=== PATIENT | female | born 1955 | race Hispanic/Latino ===

== ENCOUNTER 2019-07-15 10:48 | Emergency (ER) | payer BC, OTHER ==
--- OUTSIDE RECORDS SUMMARY | 2019-07-15 10:56 | XMS REPORT ---
:1955 Author Organization [employer] Care Team Providers Name Role Phone Donald Salvador Provider Role Unavailable Allergies, Adverse Reactions, Alerts Substance Reaction Event Type N.K.D.A. Info Not Available Non Drug Allergy Problems Problem Type Condition Code Onset Dates Condition Status Problem Pain, joint, shoulder, left M25.512 Active Problem Radiculitis of left cervical region M54.12 Active Problem Impingement syndrome of left M75.42 Active shoulder Assessment Impingement syndrome of left M75.42 Active shoulder Assessment Radiculitis of left cervical region M54.12 Active Assessment Pain, joint, shoulder, left M25.512 Active Medications No Known Medications Results No Known Results Summary Purpose [employer] Submission
[2019-07-15] MEDS ORDERED: METHOCARBAMOL 500 MG TAB ONE (12:37)
[2019-07-15] MEDS ORDERED: KETOROLAC 30 MG/ML INJ ONE (12:37)
[2019-07-15] MEDS ORDERED: DIAZEPAM 10 MG/2 ML INJ SYRINGE ONE (12:37)
[2019-07-15] MEDS ORDERED: METHYLPREDNISOLONE 125 MG INJ ONE (12:37)
--- NOTE | 2019-07-15 13:52 | RAD REPORT ---
EXAM DESCRIPTION: RAD - C Spine W Obliques - 07/15/2019 1:45 pm CLINICAL HISTORY: Neck pain, limited range of motion COMPARISON: September 2016 TECHNIQUE: AP, lateral, odontoid and oblique views of the cervical spine were obtained. FINDINGS: Cervical bodies are normal in height. No fracture or acute cervical spine finding seen. C5 -C7 fusion changes are present. Hardware is well positioned. Fusion appears well healed. There is reversal of the usual cervical lordosis with the apex at the C4-5 level. There is slight ant erior subluxation of C4 on C5. These are stable findings. C7-T1 disc space is narrowed with us spurri ng and sclerotic changes to the endplates. This is also seen as a stable finding. No fracture or other suspicious bony finding. Oblique view show no significant bony foraminal encroa chment. No significant facet degenerative change. There is no prevertebral soft tissue thickening or other significant soft tissue finding. IMPRESSION: Well-healed C5-C7 fusion changes are present with no hardware abnormality. Slight anterior subluxation of C4 on C5 is stable finding. No fracture or acute finding seen. No significant changes from the 2016 study.
--- NOTE | 2019-07-15 14:11 | ER ---
Nurse's Notes [facility] Name: Dana Garner Age: 64 yrs Sex: Female : 1955 Arrival Date: 07/15/2019 Time: 10:51 Bed 25 Private MD: Diagnosis: Torticollis Presentation: 07/15 11:06 Presenting complaint: Patient states: "My neck is still and it hurts and it goes up aj1 into my head and shoulders" Reports that she has been having this pain since yesterday. Denies any injury to the area. Denies fever. Transition of care: patient was not received from another setting of care. Onset of symptoms was July 13, 2019. Risk Assessment: Do you want to hurt yourself or someone else? Patient reports no desire to harm self or others. Initial Sepsis Screen: Does the patient meet any 2 criteria? No. Patient's initial sepsis screen is negative. Does the patient have a suspected source of infection? No. Patient's initial sepsis screen is negative. Care prior to arrival: None. 11:06 Method Of Arrival: Ambulatory aj1 11:06 Acuity: QUIRINO 4 aj1 Triage Assessment: 11:08 General: Appears in no apparent distress. uncomfortable, Behavior is calm, cooperative, aj1 appropriate for age. Pain: Complains of pain in neck Pain radiates to scalp, left trapezius and right trapezius Pain currently is 9 out of 10 on a pain scale. Quality of pain is described as soreness, tightness Pain began 2-3 days ago. Is intermittent. Neuro: Level of Consciousness is awake, alert, obeys commands, Oriented to person, place, time, situation, Gait is steady, Speech is normal, Facial symmetry appears normal. Cardiovascular: Patient's skin is warm and dry. Respiratory: Airway is patent Respiratory effort is even, unlabored, Respiratory pattern is regular, symmetrical. Historical: - Allergies: 11:08 No Known Allergies; aj1 - Home Meds: 11:08 None [Active]; aj1 - PMHx: 11:08 None; aj1 - PSHx: 11:08 surgery for a pinched nerve; aj1 - Immunization history:: Flu vaccine is not up to date. - Social history:: Smoking status: Patient/guardian denies using tobacco. - Ebola Screening: : Patient denies travel to an Ebola-affected area in the 21 days before illness onset. Screenin:48 Abuse screen: Denies threats or abuse. Denies injuries from another. Abuse screen: mg2 Denies threats or abuse. Nutritional screening: No deficits noted. Tuberculosis screening: No symptoms or risk factors identified. Fall Risk IV access (20 points). Assessment: 12:46 General: Appears in no apparent distress. comfortable, Behavior is calm, cooperative. mg2 Pain: Complains of pain in neck Pain does not radiate. Pain currently is 5 out of 10 on a pain scale. Quality of pain is described as aching, Pain began gradually, Is intermittent, Alleviated by medications. Neuro: Level of Consciousness is awake, alert, obeys commands, Oriented to person, place, time, situation. Cardiovascular: Capillary refill < 3 seconds Patient's skin is warm and dry. Respiratory: Airway is patent Respiratory effort is even, unlabored, Respiratory pattern is regular, symmetrical. GI: No signs and/or symptoms were reported involving the gastrointestinal system. : No signs and/or symptoms were reported regarding the genitourinary system. EENT: No signs and/or symptoms were reported regarding the EENT system. Derm: Skin is intact, is healthy with good turgor, Skin is pink, warm \\T\\ dry. normal. Musculoskeletal: Circulation, motion, and sensation intact. Capillary refill < 3 seconds, Reports pain in neck. 13:44 Reassessment: patient sent to xray via stretcher. mg2 14:44 Reassessment: Patient denies pain at this time. Patient states feeling better. Patient mg2 states symptoms have improved. Vital Signs: 11:08 BP 145 / 77; Pulse 79; Resp 18; Temp 98.5; Pulse Ox 99% on R/A; Weight 81.65 kg (R); aj1 Height 5 ft. 3 in. (160.02 cm) (R); Pain 9/10; 12:30 BP 135 / 70; Pulse 80; Resp 18; Temp 98(O); Pulse Ox 100% ; mg2 14:30 BP 133 / 70; Pulse 80; Resp 18; Pulse Ox 100% on R/A; mg2 11:08 Body Mass Index 31.89 (81.65 kg, 160.02 cm) aj1 ED Course: 10:51 Patient arrived in ED. as 11:08 Triage completed. aj1 11:08 Arm band placed on Patient placed in waiting room, Patient notified of wait time. aj1 12:18 Pascual Meza RN is Primary Nurse. mg2 12:18 Kashmir Zhou MD is Attending Physician. kdr 12:48 Patient has correct armband on for positive identification. mg2 12:48 No provider procedures requiring assistance completed. Inserted saline lock: 22 gauge mg2 in left antecubital area, using aseptic technique. 13:39 X-ray completed. Patient tolerated procedure well. Patient moved back from radiology. ml 14:44 IV discontinued, intact, bleeding controlled, No redness/swelling at site. Pressure mg2 dressing applied. Administered Medications: 12:46 Drug: TORadol - Ketorolac 15 mg Route: IVP; Site: left antecubital; mg2 14:25 Follow up: Response: No adverse reaction; Marked relief of symptoms mg2 12:46 Drug: SOLU-Medrol 125 mg Route: IVP; Site: left antecubital; mg2 14:24 Follow up: Response: No adverse reaction; Marked relief of symptoms mg2 12:46 Drug: Valium 5 mg Route: IVP; Site: left antecubital; mg2 14:24 Follow up: Response: No adverse reaction; Marked relief of symptoms mg2 12:46 Drug: Robaxin 750 mg Route: PO; mg2 14:24 Follow up: Response: No adverse reaction; Marked relief of symptoms mg2 Outcome: 14:09 Discharge ordered by . kdr 14:45 Discharged to home ambulatory, with family. mg2 14:45 Condition: stable 14:45 Discharge instructions given to patient, family, Instructed on discharge instructions, follow up and referral plans. medication usage, Demonstrated understanding of instructions, follow-up care, medications, Prescriptions given X 1. 14:45 Patient left the ED. mg2 Signatures: Siomara Martinez RN RN aj1 Kashmir Zhou MD MD kdr Shanon Redmond Melissa Pascual Meza RN RN mg2
--- NOTE | 2019-07-15 14:12 | EDPHYS ---
Physician Documentation [facility] Name: Dana Garner Age: 64 yrs Sex: Female : 1955 Arrival Date: 07/15/2019 Time: 10:51 Bed 25 Private MD: ED Physician Kashmir Zhou HPI: 07/15 15:19 This 64 yrs old Female presents to ER via Ambulatory with complaints of Stiff kdr Neck, Neck Pain, <24hrs Old. 15:19 The patient or guardian complains of decreased range of motion, pain, that is acute, kdr spasm, stiffness, tenderness. The symptoms are located on the right posterior aspect of neck and left posterior aspect of neck. Onset: The symptoms/episode began/occurred acutely, yesterday. Context: The problem was sustained at home, The neck injury/problem resulted from from unknown cause. 15:36 Associated signs and symptoms: The patient has no apparent associated signs or kdr symptoms. To back of head. Modifying factors: The symptoms are alleviated by remaining still, the symptoms are aggravated by movement. Severity of symptoms: At their worst the symptoms were mild, moderate, incapacitating, just prior to arrival, in the emergency department the symptoms are unchanged. The patient has not experienced similar symptoms in the past. Historical: - Allergies: 11:08 No Known Allergies; aj1 - Home Meds: 11:08 None [Active]; aj1 - PMHx: 11:08 None; aj1 - PSHx: 11:08 surgery for a pinched nerve; aj1 - Immunization history:: Flu vaccine is not up to date. - Social history:: Smoking status: Patient/guardian denies using tobacco. - Ebola Screening: : Patient denies travel to an Ebola-affected area in the 21 days before illness onset. ROS: 15:36 Constitutional: Negative for fever, chills, and weight loss, Eyes: Negative for injury, kdr pain, redness, and discharge, ENT: Negative for injury, pain, and discharge, Cardiovascular: Negative for chest pain, palpitations, and edema, Respiratory: Negative for shortness of breath, cough, wheezing, and pleuritic chest pain, Abdomen/GI: Negative for abdominal pain, nausea, vomiting, diarrhea, and constipation, Back: Negative for injury and pain, : Negative for injury, bleeding, discharge, and swelling, Neuro: Negative for headache, weakness, numbness, tingling, and seizure activity. Psych: Negative for depression, anxiety, suicide ideation, homicidal ideation, and hallucinations, Allergy/Immunology: Negative for hives, rash, and allergies, Endocrine: Negative for neck swelling, polydipsia, polyuria, polyphagia, and marked weight changes, Hematologic/Lymphatic: Negative for swollen nodes, abnormal bleeding, and unusual bruising. 15:36 Neck: Positive for pain with movement, pain at rest, stiffness, tenderness. Exam: 15:36 Constitutional: This is a well developed, well nourished patient who is awake, alert, kdr and in no acute distress. Head/Face: Normocephalic, atraumatic. Eyes: Pupils equal round and reactive to light, extra-ocular motions intact. Lids and lashes normal. Conjunctiva and sclera are non-icteric and not injected. Cornea within normal limits. Periorbital areas with no swelling, redness, or edema. Chest/axilla: Normal chest wall appearance and motion. Nontender with no deformity. No lesions are appreciated. Cardiovascular: Regular rate and rhythm with a normal S1 and S2. No gallops, murmurs, or rubs. Normal PMI, no JVD. No pulse deficits. 15:36 Neck: External neck: tenderness, C-spine: no acute changes, ROM/movement: limited range of motion, Meningeal signs: are not present, nuchal rigidity, is not appreciated. Vital Signs: 11:08 BP 145 / 77; Pulse 79; Resp 18; Temp 98.5; Pulse Ox 99% on R/A; Weight 81.65 kg (R); aj1 Height 5 ft. 3 in. (160.02 cm) (R); Pain 9/10; 12:30 BP 135 / 70; Pulse 80; Resp 18; Temp 98(O); Pulse Ox 100% ; mg2 14:30 BP 133 / 70; Pulse 80; Resp 18; Pulse Ox 100% on R/A; mg2 11:08 Body Mass Index 31.89 (81.65 kg, 160.02 cm) aj1 MDM: 14:09 Patient medically screened. kdr 15:36 Data reviewed: vital signs, nurses notes, radiologic studies. Counseling: I had a kdr detailed discussion with the patient and/or guardian regarding: the historical points, exam findings, and any diagnostic results supporting the discharge/admit diagnosis, radiology results, the need for outpatient follow up. 07/15 12:28 Order name: C Spine W Obliques XRAY kdr 07/15 14:35 Order name: JANET SONA Administered Medications: 12:46 Drug: TORadol - Ketorolac 15 mg Route: IVP; Site: left antecubital; mg2 14:25 Follow up: Response: No adverse reaction; Marked relief of symptoms mg2 12:46 Drug: SOLU-Medrol 125 mg Route: IVP; Site: left antecubital; mg2 14:24 Follow up: Response: No adverse reaction; Marked relief of symptoms mg2 12:46 Drug: Valium 5 mg Route: IVP; Site: left antecubital; mg2 14:24 Follow up: Response: No adverse reaction; Marked relief of symptoms mg2 12:46 Drug: Robaxin 750 mg Route: PO; mg2 14:24 Follow up: Response: No adverse reaction; Marked relief of symptoms mg2 Disposition: 07/15/19 14:09 Discharged to Home. Impression: Torticollis. - Condition is Stable. - Discharge Instructions: Acute Torticollis, Adult. - Prescriptions for Ibuprofen 800 mg Oral Tablet - take 1 tablet by ORAL route every 12 hours As needed take with food; 20 tablet. Robaxin 500 mg Oral Tablet - take 2 tablet by ORAL route every 6 hours As needed; 40 tablet. Medrol (Danial) 4 mg Oral Tablets, Dose Pack - take 1 tablet by ORAL route as directed - follow package instructions; 1 packet. - Medication Reconciliation Form, Thank You Letter, Work release form form. - Follow up: Private Physician; When: 2 - 3 days; Reason: If symptoms return, Further diagnostic work-up, Recheck today's complaints, Continuance of care, Re-evaluation by your physician. - Problem is new. - Symptoms have improved. Signatures: Dispatcher [employer] Siomara Riggs RN RN aj1 Kashmir Zhou MD MD kdr Gardose, Michele, RN RN mg2 Corrections: (The following items were deleted from the chart) 14:45 14:09 07/15/2019 14:09 Discharged to Home. Impression: Torticollis. Condition is mg2 Stable. Forms are Medication Reconciliation Form, Thank You Letter, Antibiotic Education, Prescription Opioid Use. Follow up: Private Physician; When: 2 - 3 days; Reason: If symptoms return, Further diagnostic work-up, Recheck today's complaints, Continuance of care, Re-evaluation by your physician. Problem is new. Symptoms have improved. kdr
[2019-07-15 15:16] VITALS: TEMP 98; O2SAT 100
[2019-07-15 15:17] VITALS: BP 133/70
[2019-07-16] MEDS ORDERED: NA CHLORIDE 0.9% 1,000 ML ONE (11:40)
[2019-07-16] MEDS ORDERED: TENECTEPLASE 50 MG/10 ML VIAL IV ONE (11:45)
== END 2019-07-15 14:45 | disposition home or self-care (01) ==
LOC: ER 10:48
DX: M43.6 Torticollis (principal)
CPT/HCPCS: 72050; 96375; 96374; 99284; J3360; J2930

== ENCOUNTER 2020-07-04 14:13 | Observation (INO) | payer OTHER ==
--- OUTSIDE RECORDS SUMMARY | 2020-07-04 14:15 | XMS REPORT | Continuity of Care Document ---
:1955 Author Organization [facility] t Address [address] [place] [address] Care Team Providers Name Role Phone Unavailable Unavailable Unavailable Problems Condition Condition Condition Status Onset Resolution Last Treating Co mments Source Name Details Category Date Date Treatment Clinician Date Pain, Pain, Problem Active [facility] shoulder, Cresencio carolynn left left l Outpati ent Clinics Radiculiti Radiculiti Problem Active [facility] left s of left [facility] - cervical cervical [facility] a region region l Outpati ent Clinics Impingemen Impingemen Problem Active [facility] syndrome t syndrome Lashonda kes - of left of left Memoria shoulder shoulder l Outpati ent Clinics Osteoarthr Osteoarthr Problem Active [facility] itis of itis of [facility] - cervical cervical Memori a spine spine l determined determined Ou tpati by x-ray by x-ray ent Clinics Vitamin D Vitamin D Problem Active [facility] deficiency deficiency Lashonad kes - disease disease [facility] l Outpati ent Clinics Stress Stress Problem Active [facility] incontinen incontinen Lashonda kes - ce ce [facility] l Outpati ent Clinics Encounter Encounter Diagnosis Active [facility] for [facility] - general general [facility] adult adult l medical medical Outpati examinatio examinatio en t n without n without Clin ics abnormal abnormal findings findings Screening Screening Diagnosis Active [facility] - malignant malignant Cresencio carolynn neoplasm neoplasm l of breast of breast Outp ati ent Clinics Encounter Encounter Diagnosis Active [facility] for [facility] - gynecologi gynecologi Me moria bekah bekah l examinatio examinatio Ou tpati n n ent Clinics Cervical Cervical Diagnosis Active [facility] cancer cancer [facility] - screening screening Cresencio carolynn l Outpati ent Clinics Allergies, Adverse Reactions, Alerts This patient has no known allergies or adverse reactions. Medications Ordered Filled Start Stop Current Ordering Indication Dosage Frequency Signature Comments Components Source Medication Medication Date Date Medication? Clinician (SIG) Name Name Fredrick Alcala 2018-2019- No Sachi Dalton [address] [facility]l 11-02 [facility] - 00:[facility]: 00:00 [facility] 00 :00 [facility] Procedures This patient has no known procedures. Encounters Start End Encounter Admission Attending Care Care Encounter Source Date/Time Date/Time Type Type Clinicians Facility Department ID 2019-09-02 2019-09-02 Outpatient Oma Germain [id number] [facility] 08:14:00 08:14:00 t [facility]fusion [facility] ent [facility] 2019-09-01 2019-09-01 Outpatient Oma Ernandezt [id number] [facility] 08:20:00 08:20:00 t [facility] 2019-08-01 2019-08-01 Outpatient Oma Germain [id number] [facility] 15:20:00 15:20:00 t [facility] ent [facility] 2018-09-29 2018-09-29 Outpatient Brazargenis Ernandezt [id number] [facility] 15:00:00 15:00:00 t [facility] - and [facility] ent [facility] Results This patient has no known results.
[2020-07-04 15:21] LABS: Absolute Lymphocytes (CBC) 2.4 K/uL (0.7-4.9); Basophils % 1.2 % (0-1.3); Hematocrit 40.6 % (36.0-45.0); Lymphocytes % 28.4 % (15.3-44.8); MPV 9.3 fL (7.6-11.3); RBC Red Blood Cell Count 4.43 M/uL (3.86-4.86)
[2020-07-04 15:22] LABS: Protime INR 1.04
--- NOTE | 2020-07-04 15:43 | RAD REPORT ---
EXAM DESCRIPTION: RAD - Chest Single View - 07/04/2020 3:08 pm CLINICAL HISTORY: CHEST PAIN Chest pain. COMPARISON: Chest Single View dated 08/23/2017; Chest Pa And Lat (2 Views) dated 09/27/2016; CHEST SI NGLE VIEW dated 11/18/2013; CHEST PA AND LAT 2 VIEW dated 04/05/2013 FINDINGS: Portable technique limits examination quality. The lungs are grossly clear. The heart is normal in size. No displaced fractures.Cervical hardware pl ate. IMPRESSION: No acute intrathoracic process suspected.
[2020-07-04 15:53] LABS: ALT/SGPT 21 U/L (12-78); AST/SGOT 14 U/L (15-37); Albumin 3.4 g/dL (3.4-5.0); Alkaline Phosphatase 85 U/L (45-117); BUN Blood Urea Nitrogen 11 mg/dL (7-18); Bicarbonate 27 mmol/L (21-32); Bilirubin Direct < 0.1 mg/dL (0-0.2); Bilirubin Total 0.4 mg/dL (0.2-1.0); Glucose Level 123 mg/dL (74-106); NT PRO-BNP 90 pg/mL (<125); Potassium 3.6 mmol/L (3.5-5.1); Protein, Total 7.8 g/dL (6.4-8.2); Sodium Level 143 mmol/L (136-145); Troponin (Emerg Dept Use Only) < 0.02 ng/mL (0.0-0.045)
--- NOTE | 2020-07-04 16:29 | RAD REPORT ---
EXAM DESCRIPTION: CT - Angio Aorta For Dissection - 07/04/2020 4:12 pm CLINICAL HISTORY: Chest pain radiating to the back. CHEST PAIN COMPARISON: No comparisons TECHNIQUE: CT angiography of the aorta was performed with MIPs. All CT scans are performed using dose optimization technique as appropriate and may include automated exposure control or mA/KV adjustment according to patient size. FINDINGS: A left aortic arch is present with normal branching pattern of the great vessels.No acute aortic finding is seen such as aneurysm, penetrating ulcer or dissection. The celiac axis, SMA, MARILUZ and renal arteries are widely patent. No evidence of pulmonary embolism. The lungs are clear. The liver demonstrates no focal mass or biliary dilatation.The spleen, pancreas, adrenal glands and k idneys are within normal limits for arterial phase imaging. No bowel obstruction, free fluid or abscess.Sigmoid diverticulosis coli without diverticulitis.No pat hologic enlarged lymphadenopathy identified.Normal appendix. Bilateral chronic spondylolysis at L5-S1 with grade 1 anterolisthesis. IMPRESSION: No acute aortic finding is demonstrated. Sigmoid diverticulosis without diverticulitis. Chronic L5-S1 bilateral spondylolysis with mild anterolisthesis.
[2020-07-04] MEDS ORDERED: METHYLPREDNISOLONE 125 MG INJ ONE (16:32)
[2020-07-04] MEDS ORDERED: DIPHENHYDRAMINE 50 MG/ML VIAL ONE (16:32)
--- NOTE | 2020-07-04 16:55 | EDPHYS ---
Physician Documentation [facility] Name: Dana Garner Age: 65 yrs Sex: Female : 1955 Arrival Date: 07/04/2020 Time: 14:15 Bed 5 Private MD: ED Physician Amarjit Epstein HPI: 07/04 15:12 This 65 yrs old Female presents to ER via Ambulatory with complaints of Chest rn Pain, Back Pain. 15:12 The patient or guardian reports chest pain that is located primarily in the substernal rn area. Onset: yesterday. The pain radiates to back. The chest pain is described as a heaviness. Duration: The patient or guardian reports multiple episodes, that are intermittent. Severity of pain: At its worst the pain was moderate in the emergency department the pain has improved. The patient has not experienced similar symptoms in the past. The patient has not recently seen a physician. Reports chest pain, radiates to back, heavy/dull, intermittent since yesterday, no trauma, no fever/cough/sob. No abd pain/vomiting. + father of RI around her age, mother and sibling with RI in 40s. . Historical: - Allergies: 14:30 No Known Allergies; ca1 - Home Meds: 14:30 None [Active]; ca1 - PMHx: 14:30 None; ca1 - PSHx: 14:30 None; ca1 - Immunization history:: Adult Immunizations up to date. - Social history:: Smoking status: Patient denies any tobacco usage or history of. - Family history:: pertinent for heart disease. - Hospitalizations: : No recent hospitalization is reported. ROS: 15:12 Constitutional: Negative for fever, chills, and weight loss, Neck: Negative for injury, rn pain, and swelling, Cardiovascular: Negative for palpitations, and edema, Respiratory: Negative for shortness of breath, cough, wheezing, and pleuritic chest pain, Abdomen/GI: Negative for abdominal pain, nausea, vomiting, diarrhea, and constipation, MS/Extremity: Negative for injury and deformity, Skin: Negative for injury, rash, and discoloration, Neuro: Negative for headache, weakness, numbness, tingling, and seizure. Exam: 14:50 ECG was reviewed by the Attending Physician. rn 15:12 Constitutional: This is a well developed, well nourished patient who is awake, alert, rn and in no acute distress. Head/Face: Normocephalic, atraumatic. Cardiovascular: Regular rate and rhythm. No pulse deficits. Respiratory: Speaking full sentences. No increased work of breathing, no retractions or nasal flaring. Abdomen/GI: soft, non-tender Skin: Warm, dry MS/ Extremity: Pulses equal, no cyanosis. Neurovascular intact. Full, normal range of motion. Equal circumference. Neuro: Awake and alert, GCS 15 Vital Signs: 14:27 BP 153 / 89; Pulse 82; Resp 17 S; Temp 97.8(TE); Pulse Ox 98% on R/A; Weight 78.02 kg ca1 (R); Height 5 ft. 3 in. (160.02 cm) (R); 15:05 BP 132 / 65; Pulse 72; Resp 15; Pulse Ox 98% ; jl7 16:00 BP 128 / 69; Pulse 67; Resp 16; Pulse Ox 97% ; bp 16:33 BP 149 / 87; Pulse 66; Resp 15; Pulse Ox 99% ; jl7 19:09 BP 109 / 91; Pulse 57; Resp 16; Pulse Ox 97% on R/A; Pain 0/10; ca1 19:25 BP 109 / 94; Pulse 62; Resp 18; Temp 97; Pulse Ox 97% on R/A; mg2 14:27 Body Mass Index 30.47 (78.02 kg, 160.02 cm) ca1 MDM: 14:40 Patient medically screened. rn 16:52 Differential diagnosis: acute myocardial infarction, acute pericarditis, anxiety, rn coronary artery disease chest wall pain, costochondritis, esophagitis, gastritis, pleurisy, pneumothorax, stable angina, thoracic aortic disection, unstable angina. Data reviewed: vital signs, nurses notes, lab test result(s), EKG, radiologic studies, and as a result, I will admit patient. Counseling: I had a detailed discussion with the patient and/or guardian regarding: the historical points, exam findings, and any diagnostic results supporting the discharge/admit diagnosis, lab results, radiology results, the need for further work-up and treatment in the hospital. Admission orders: after a detailed discussion of the patient's condition and case, the admit orders are written by me. ED course: No acute findings on bloodwork/ekg/ct aorta, + strong famhx of early RI and , will admit to Dr. Walters. . 07/04 14:50 Order name: Basic Metabolic Panel; Complete Time: 16:03 rn 07/04 14:50 Order name: CBC with Diff; Complete Time: 16:03 rn 07/04 14:50 Order name: LFT's; Complete Time: 16:03 rn 07/04 14:50 Order name: NT PRO-BNP; Complete Time: 16:03 rn 07/04 14:50 Order name: PT-INR; Complete Time: 16:03 rn 07/04 14:50 Order name: Troponin (emerg Dept Use Only); Complete Time: 16:03 rn 07/04 14:50 Order name: XRAY Chest (1 view); Complete Time: 16:03 rn 07/04 14:50 Order name: EKG; Complete Time: 14:50 rn 07/04 14:50 Order name: Cardiac monitoring; Complete Time: 15:05 rn 07/04 14:50 Order name: EKG - Nurse/Tech; Complete Time: 15:05 rn 07/04 14:50 Order name: CT Aorta for Dissection; Complete Time: 16:45 rn 07/04 19:28 Order name: COVID-19 mg2 07/04 14:50 Order name: IV Saline Lock; Complete Time: 15:05 rn 07/04 14:50 Order name: Labs collected and sent; Complete Time: 15:05 rn 07/04 14:50 Order name: O2 Per Protocol; Complete Time: 15:05 rn 07/04 14:50 Order name: O2 Sat Monitoring; Complete Time: 15:04 rn EC:50 Rate is 69 beats/min. Rhythm is regular. QRS [place] is Normal. ME interval is normal. QRS rn interval is normal. QT interval is normal. No Q waves. T waves are Normal. No ST changes noted. Clinical impression: Normal ECG. Interpreted by me. Reviewed by me. Administered Medications: 16:24 Drug: diphenhydrAMINE 50 mg Route: IVP; Site: left antecubital; bp 16:48 Follow up: Response: Marked relief of symptoms bp 16:24 Drug: SOLU-Medrol 125 mg Route: IVP; Site: left antecubital; bp 16:48 Follow up: Response: Marked relief of symptoms bp Disposition: 07/04/20 16:55 Hospitalization ordered by Aly Walters for Observation. Preliminary diagnosis is Chest pain, unspecified. - Bed requested for Telemetry/MedSurg (observation). - Status is Observation. mg2 - Condition is Stable. - Problem is new. - Symptoms have improved. Signatures: Dispatcher [employer] EDMS Amarjit Epstein MD MD rn Sidney Redmond em1 Bertrand Hou RN RN bp Pascual Meza RN RN mg2 Tasha Roberts RN RN ca1 Corrections: (The following items were deleted from the chart) 17:52 16:55 Hospitalization Ordered by Aly Walters for Observation. Preliminary diagnosis em1 is Chest pain, unspecified. Bed requested for Telemetry/MedSurg (observation). Status is Observation. Condition is Stable. Problem is new. Symptoms have improved. rn 20:01 17:52 07/04/2020 16:55 Hospitalization Ordered by Aly Walters for Observation. mg2 Preliminary diagnosis is Chest pain, unspecified. Bed requested for Telemetry/MedSurg (observation). Status is Observation. Condition is Stable. Problem is new. Symptoms have improved. em1
--- NOTE | 2020-07-04 16:55 | ER ---
Nurse's Notes [facility] Name: Dana Garner Age: 65 yrs Sex: Female : 1955 Arrival Date: 07/04/2020 Time: 14:15 Bed 5 Private MD: Diagnosis: Chest pain, unspecified Presentation: 07/04 14:27 Chief complaint: Patient states: Mid sternal chest pain radiating to the back, started ca1 yesterday PM. Pain is intermittent, described as heavy and sharp, Painscale at 7/10. Denies any other symptoms. Denies injury to chest and back. Coronavirus screen: Client denies travel out of the [place] in the last 14 days. At this time, the client does not indicate any symptoms associated with coronavirus-19. Ebola Screen: Patient negative for fever greater than or equal to 101.5 degrees Fahrenheit, and additional compatible Ebola Virus Disease symptoms Patient denies exposure to infectious person. Patient denies travel to an Ebola-affected area in the 21 days before illness onset. No symptoms or risks identified at this time. Initial Sepsis Screen: Does the patient meet any 2 criteria? No. Patient's initial sepsis screen is negative. Does the patient have a suspected source of infection? No. Patient's initial sepsis screen is negative. Risk Assessment: Do you want to hurt yourself or someone else? Patient reports no desire to harm self or others. Onset of symptoms was July 04, 2020. 14:27 Method Of Arrival: Ambulatory ca1 14:27 Acuity: QUIRINO 3 ca1 Triage Assessment: 14:30 General: Appears distressed, uncomfortable, obese, Behavior is cooperative, appropriate bp for age, anxious. Pain: Complains of pain in chest. EENT: No deficits noted. Neuro: No deficits noted. Cardiovascular: Chest pain is described as mild. Respiratory: No deficits noted. GI: No signs and/or symptoms were reported involving the gastrointestinal system. : No signs and/or symptoms were reported regarding the genitourinary system. Derm: No deficits noted. Musculoskeletal: No deficits noted. Historical: - Allergies: 14:30 No Known Allergies; ca1 - Home Meds: 14:30 None [Active]; ca1 - PMHx: 14:30 None; ca1 - PSHx: 14:30 None; ca1 - Immunization history:: Adult Immunizations up to date. - Social history:: Smoking status: Patient denies any tobacco usage or history of. - Family history:: pertinent for heart disease. - Hospitalizations: : No recent hospitalization is reported. Screenin:37 Abuse screen: Denies threats or abuse. Denies injuries from another. Nutritional jl7 screening: No deficits noted. Tuberculosis screening: No symptoms or risk factors identified. Fall Risk IV access (20 points). Total Sheffield Fall Scale indicates No Risk (0-24 pts). Assessment: 14:30 General: SEE TRIAGE NOTE. bp 15:30 Reassessment: Patient appears in no apparent distress at this time. Patient and/or bp family updated on plan of care and expected duration. Pain level reassessed. Patient is alert, oriented x 3, equal unlabored respirations, skin warm/dry/pink. Patient denies pain at this time. 16:25 Reassessment: PT RETURNED FROM CT. URTICARIA NOTED TO CHEST AND NECK, MD INFORMED. PT bp MEDICATED APPROPRIATELY. 19:11 Reassessment: Patient and/or family updated on plan of care and expected duration. Pain ca1 level reassessed. Patient is alert, oriented x 3, equal unlabored respirations, skin warm/dry/pink. General: Appears. General: Appears comfortable, Behavior is cooperative. Pain:. Pain: Denies pain. 19:15 Pain: Complains of pain in chest Pain does not radiate. Pain currently is 3 out of 10 ca1 on a pain scale. at worst was 9 out of 10 on a pain scale. level that patient reports is acceptable is 3 out of 10 on a pain scale. Quality of pain is described as aching, Pain began. 19:25 General: Appears in no apparent distress. comfortable, Behavior is calm, cooperative. mg2 Pain: Denies pain. Neuro: Level of Consciousness is awake, alert, obeys commands, Oriented to person, place, time, situation. Cardiovascular: Capillary refill < 3 seconds. Respiratory: Airway is patent Respiratory effort is even, unlabored, Respiratory pattern is regular, symmetrical. GI: No deficits noted. : No signs and/or symptoms were reported regarding the genitourinary system. EENT: No signs and/or symptoms were reported regarding the EENT system. Derm: Skin is intact, is healthy with good turgor, Skin is pink, warm \T\ dry. normal. Musculoskeletal: Circulation, motion, and sensation intact. Capillary refill < 3 seconds. 19:39 Reassessment: called for report but nurse is still not ready to take report. mg2 Vital Signs: 14:27 BP 153 / 89; Pulse 82; Resp 17 S; Temp 97.8(TE); Pulse Ox 98% on R/A; Weight 78.02 kg ca1 (R); Height 5 ft. 3 in. (160.02 cm) (R); 15:05 BP 132 / 65; Pulse 72; Resp 15; Pulse Ox 98% ; jl7 16:00 BP 128 / 69; Pulse 67; Resp 16; Pulse Ox 97% ; bp 16:33 BP 149 / 87; Pulse 66; Resp 15; Pulse Ox 99% ; jl7 19:09 BP 109 / 91; Pulse 57; Resp 16; Pulse Ox 97% on R/A; Pain 0/10; ca1 19:25 BP 109 / 94; Pulse 62; Resp 18; Temp 97; Pulse Ox 97% on R/A; mg2 14:27 Body Mass Index 30.47 (78.02 kg, 160.02 cm) ca1 ED Course: 14:15 Patient arrived in ED. ag5 14:25 Bertrand Hou, RN is Primary Nurse. bp 14:30 Triage completed. ca1 14:30 Arm band placed on right wrist. ca1 14:37 Patient has correct armband on for positive identification. Placed in gown. Bed in low jl7 position. Call light in reach. Side rails up X 1. ekg monitor tech on. Pulse ox on. NIBP on. Warm blanket given. 14:37 EKG done, by ED staff, reviewed by Bertrand Hou RN. Patient maintains SpO2 saturation jl7 greater than 95% on room air. 14:40 Amarjit Epstein MD is Attending Physician. rn 14:43 Inserted saline lock: 20 gauge in left antecubital area, using aseptic technique. Blood bp collected. 15:07 XRAY Chest (1 view) In Process Unspecified. EDMS 16:12 CT Aorta for Dissection In Process Unspecified. EDMS 16:54 Aly Walters is Hospitalizing Provider. rn 19:37 No provider procedures requiring assistance completed. covid swab sent. Patient mg2 admitted, IV remains in place. Administered Medications: 16:24 Drug: diphenhydrAMINE 50 mg Route: IVP; Site: left antecubital; bp 16:48 Follow up: Response: Marked relief of symptoms bp 16:24 Drug: SOLU-Medrol 125 mg Route: IVP; Site: left antecubital; bp 16:48 Follow up: Response: Marked relief of symptoms bp Outcome: 16:55 Decision to Hospitalize by Provider. rn 19:52 Condition: stable ca1 19:52 Instructed on the need for admit. 19:58 Admitted to Med/surg room 225, Report called to MIROSLAVA REYNOSO ca1 20:01 Patient left the ED. mg2 Signatures: Dispatcher [employer] EDMS Amarjit Epstein MD MD rn Leal, Jahala, RN RN jl7 Bertrand Hou RN RN bp Pascual Meza RN RN mg2 Tasha Roberts RN RN ca1 Gely Josue 5
--- NOTE | 2020-07-04 17:25 | P.HP ---
Certification for Inpatient Patient admitted to: Observation With expected LOS: <2 Midnights Practitioner: I am a practitioner with admitting privileges, knowledge of patient current condition, hospital course, and medical plan of care. Services: Services provided to patient in accordance with Admission requirements found in Title 42 Section 412.3 of the Code of Federal Regulations Patient History Date of Service: 07/04/20 Reason for admission: Chest pain History of Present Illness: 65-year-old woman with a history of osteoarthritis presented to the emergency department with a complaint of chest pain of onset 2 days ago. Patient described mid sternal chest pain, maximum intensity 7/10, intermittent, radiating to the back, no no relieving or aggravating factor, no associated shortness of breath or diaphoresis or cough or shortness of breath. She has a significant family history of premature coronary artery disease. Patient is not on any home medications. Her initial troponin in the ED is negative. EKG demonstrated normal sinus rhythm with no ischemic changes. Chest x-ray demonstrated no acute disease. CTA aorta was performed, shows no evidence of pulmonary embolism or aortic dissection or aneurysm. Given patient's significant family history, she is placed under observation for ACS rule out. Allergies No Known Allergies Allergy (Unverified 08/23/17 13:08) - Past Medical/Surgical History Diabetic: No -: Osteoarthritis - Family History Father -: Heart disease Mother -: Heart disease, Diabetes Brother -: Diabetes - Social History Smoking Status: Never smoker Alcohol use: No CD- Drugs: No Place of Residence: Home Review of Systems Other: Except as documented, all other systems reviewed and negative. Physical Examination - Physical Exam General: Alert, In no apparent distress, Oriented x3 HEENT: Normocephalic, Mucous membr. moist/pink, EOMI, Sclerae nonicteric Neck: Supple, JVD not distended, No Thyromegaly Respiratory: Clear to auscultation bilaterally, Normal air movement Cardiovascular: No edema, Normal pulses, Regular rate/rhythm, Normal S1 S2, No murmurs Capillary refill: <2 Seconds Gastrointestinal: Normal bowel sounds, Soft and benign, Non-distended, No tenderness Musculoskeletal: No swelling, No erythema Integumentary: No rashes, No tenderness/swelling, No erythema Neurological: Normal strength at 5/5 x4 extr, Cranial nerves 3-12 intact - Studies Laboratory Data (last 24 hrs) 07/04/20 14:45: PT 12.3, INR 1.04 07/04/20 14:45: WBC 8.5, Hgb 13.5, Hct 40.6, Plt Count 223 07/04/20 14:45: Sodium 143, Potassium 3.6, BUN 11, Creatinine 0.78, Glucose 123 H, Total Bilirubin 0.4, AST 14 L, ALT 21, Alkaline Phosphatase 85 Assessment and Plan - Problems (Diagnosis) (1) Chest pain Current Visit: Yes Status: Acute (2) Osteoarthritis Current Visit: Yes Status: Acute - Plan Place under observation. Trend troponin. Start aspirin. Pain management as needed Check lipid profile Monitor blood pressure Screen for diabetes with hemoglobin A1c. Nuclear stress test pending troponin result. - Advance Directives Does patient have a Living Will: No Does patient have a Durable POA for Healthcare: No
[2020-07-04] MEDS ORDERED: MORPHINE 4 MG/ML SYR IV PRN (20:41)
[2020-07-04] MEDS ORDERED: NITROGLYCERIN 0.4 MG/TAB SL PRN (20:41)
[2020-07-04 21:26] LABS: HDL Cholesterol 64 mg/dL (40-60); LDL Cholesterol, Calculated 86 (<130); Troponin I < 0.02 ng/mL (0.0-0.045)
[2020-07-04 21:33] VITALS: BMI 30.4
[2020-07-05 04:17] LABS: Absolute Lymphocytes (CBC) 0.8 K/uL (0.7-4.9); Basophils % 0.2 % (0-1.3); Hematocrit 40.6 % (36.0-45.0); Lymphocytes % 7.5 % (15.3-44.8); MPV 8.9 fL (7.6-11.3); RBC Red Blood Cell Count 4.44 M/uL (3.86-4.86)
--- NOTE | 2020-07-05 05:56 | EKG ---
Test Date: 2020-07-04 Test Time: 14:31:08 [employer] Ic Layout Designer: MARCELINO MEASUREMENT RESULTS: Intervals: Rate: 69 MT: 146 QRSD: 86 QT: 380 QTc: 407 [place]: P: 36 MT: 146 QRS: 20 T: 39 INTERPRETIVE STATEMENTS: Normal sinus rhythm Normal ECG Compared to ECG 08/23/2017 10:48:07 No significant changes Electronically Signed On 07-05-20 05:55:18 CDT by Gustavo Tobar
[2020-07-05] MEDS ORDERED: REGADENOSON 0.4 MG/5 ML SYR IV ONE (08:23)
[2020-07-05 08:42] LABS: Anisocytosis 1+; Blood Morphology Comment NOTED (NOT SEEN); Platelet Estimate ADEQ; White Blood Cell Scan OK (OK)
[2020-07-05] MEDS ORDERED: ASPIRIN EC 81 MG TAB PO SCH (09:00)
[2020-07-05] MEDS ORDERED: ENOXAPARIN 40 MG/0.4 ML SQ SCH (09:00)
[2020-07-05] MEDS ORDERED: ACETAMINOPHEN 500 MG TAB PO PRN (11:57)
--- NOTE | 2020-07-05 12:10 | RAD REPORT ---
EXAM DESCRIPTION: NM - Rest Stress Cardiac Imaging - 07/05/2020 11:51 am CLINICAL HISTORY: Chest pain. COMPARISON: None. TECHNIQUE: The patient was administered approximately 10mCi of Tc 99m Sestamibi prior to resting SPE CT imaging of the heart. The patient was then administered approximately 30 mCi of Tc 99m Sestamibi f ollowing exercise or pharmacologic stress. Multiplanar SPECT images were reviewed. FINDINGS: There is uniformity of radiotracer uptake involving the entire left ventricular myocardiu m on rest and stress images. The left ventricular ejection fraction equals 65% IMPRESSION: Negative for a myocardial perfusion defect
--- NOTE | 2020-07-05 12:13 | P.DS ---
Admission Date: 07/04/20 Discharge Date: 07/05/20 Disposition: ROUTINE DISCHARGE Discharge Condition: FAIR Reason for Admission: Chest pain - Problems (1) Chest pain Current Visit: Yes Status: Acute (2) Osteoarthritis Current Visit: Yes Status: Acute Brief History of Present Illness: 65-year-old woman with a history of osteoarthritis presented to the emergency department with a complaint of chest pain of onset 2 days ago. Patient described mid sternal chest pain, maximum intensity 7/10, intermittent, radiating to the back, no relieving or aggravating factor, no associated shortness of breath or diaphoresis or cough or shortness of breath. She has a significant family history of premature coronary artery disease. Patient is not on any home medications. Her initial troponin in the ED was negative. EKG demonstrated normal sinus rhythm with no ischemic changes. Chest x-ray demonstrated no acute disease. CTA aorta was performed, showed no evidence of pulmonary embolism or aortic dissection or aneurysm. Given patient's significant family history, she was placed under observation for ACS rule out. Hospital Course: Troponin trended came back negative. No episode of chest pain during the hospital stay. Nuclear stress test performed... Patient was normotensive and lipid profile was within normal limit. ACS has been ruled. Patient is deemed clinically stable for discharge. Vital Signs/Physical Exam: Temp Pulse Resp BP Pulse Ox 97.1 F 71 18 118/56 L 96 07/05/20 08:00 07/05/20 08:00 07/05/20 08:00 07/05/20 08:00 07/05/20 08:00 General: Alert, In no apparent distress Respiratory: Clear to auscultation bilaterally, Normal air movement Cardiovascular: No edema, Normal pulses, Regular rate/rhythm, Normal S1 S2 Gastrointestinal: Normal bowel sounds, Soft and benign, No tenderness Musculoskeletal: No swelling, No erythema Integumentary: No rashes Neurological: Other (Non-focal) Laboratory Data at Discharge: WBC 11.0 K/uL (4.3-10.9) H D 07/05/20 03:48 Hgb 13.6 g/dL (12.0-15.0) 07/05/20 03:48 Hct 40.6 % (36.0-45.0) 07/05/20 03:48 Plt Count 241 K/uL (152-406) 07/05/20 03:48 PT 12.3 SECONDS (9.5-12.5) 07/04/20 14:45 INR 1.04 07/04/20 14:45 Sodium 141 mmol/L (136-145) 07/05/20 03:48 Potassium 4.0 mmol/L (3.5-5.1) 07/05/20 03:48 BUN 14 mg/dL (7-18) 07/05/20 03:48 Creatinine 0.80 mg/dL (0.55-1.3) 07/05/20 03:48 Glucose 166 mg/dL (74-106) H 07/05/20 03:48 Total Bilirubin 0.4 mg/dL (0.2-1.0) 07/04/20 14:45 AST 14 U/L (15-37) L 07/04/20 14:45 ALT 21 U/L (12-78) 07/04/20 14:45 Alkaline Phosphatase 85 U/L (45-117) 07/04/20 14:45 Troponin I < 0.02 ng/mL (0.0-0.045) 07/05/20 00:53 Triglycerides 87 mg/dL (<150) 07/04/20 20:57 Cholesterol 167 mg/dL (<200) 07/04/20 20:57 HDL Cholesterol 64 mg/dL (40-60) H 07/04/20 20:57 Cholesterol/HDL Ratio 2.61 07/04/20 20:57 Home Medications: Aspirin [Aspirin EC 81 MG] 81 mg PO DAILY #30 tablet. 07/05/20 New Medications: Aspirin [Aspirin EC 81 MG] 81 mg PO DAILY #30 tablet. Diet: Regular Activity: Ad nato
[2020-07-05 12:18] VITALS: BP 140/69; TEMP 97.2
[2020-07-05 12:25] VITALS: O2SAT 100
--- NOTE | 2020-07-06 10:09 | TREADPHA ---
DX: CHEST PAIN Date of Study: 07/05/2020 Ht: 5' 3 " Wt: 172 lb 0 oz Consulting Physician: ANGY MEDICATIONS: ASPIRIN, LOVENOX, NITROSTAT HISTORY: 65 YEAR OLD FEMALE ADMITTED FOR CHEST PAIN DENIES MEDICAL HISTORY. PHYSICIAL EXAMINATION: RESTING B.P.: 139/73 RESTING H.R.: 65 RESTING EKG: NORMAL SINUS RHYTHM. HEART RATE 67. PROTOCOL: LEXISCAN EXERCISE TIME: 3:30 B.P. AT PEAK STRESS: 145/71 IMPRESSION: LEXISCAN STRESS TEST PERFORMED. CARDIOLITE INJECTED PER PROTOCOL. NO SUPRAVENTRICULAR TACHYCARDIA. NO VENTRICULAR TACHYCARDIA. NO ARRYTHMIAS NOTED. PATIENT DENIED ANY CHEST PAIN. RESPIRATORY EVEN AND NON LABORED. TOLERATED WELL. NO STRESS INDUCED ISCHEMIA PER EKG.
== END 2020-07-05 15:28 | disposition home or self-care (01) ==
LOC: ER 14:13 → ERHOLD 17:27 → 2ND 19:52
PROVIDERS: ADMIT Internal Medicine; ATTEND Internal Medicine
DX: R07.9 Chest pain, unspecified (principal); M19.90 Unspecified osteoarthritis, unspecified site; Z20.828 Contact with and (suspected) exposure to other viral communicable diseases; Z82.49 Family history of ischemic heart disease and other diseases of the circulatory system; Z83.3 Family history of diabetes mellitus
CPT/HCPCS: 93005; 93017; 85025 ×2; 80048 ×2; 36415; 85610; 80061; 80076; 84484 ×3; 83880; 71275; 74175; 71045; 94760; 78452; 96375; 96374; 99285; U0003; Q9967; J1200; J1650; J2785; J2930; A9500; G0378 ×3

== ENCOUNTER → 2022-09-23 | Day surgery (SDC) | payer MEDICARE ==
--- NOTE | 2022-09-23 17:08 | RAD REPORT ---
EXAM DESCRIPTION: US - Breast Aspiration Inital - 09/23/2022 11:10 am CLINICAL HISTORY: Mass right breast. R92.8,N63.14 COMPARISON: Breast ultrasound 09/03/2022 FINDINGS: The patient presents for ultrasound-guided breast biopsy. The procedure, risks and alterna tives were discussed with the patient in detail. After answering all questions, oral and written con sent were obtained. Time out procedure was performed. The patient had no contraindicated allergy or medication history. Preliminary imaging again identified the 10-12 mm hypoechoic mass periareolar 6 o'clock right breast immediately deep to the skin surface. The skin was prepped and draped in the usual sterile fashion. Skin and deeper tissues were anesthetized with 1 percent lidocaine. Prior to a core biopsy, the mass in question was probed with a 22 gauge needle to determine if the mass may be a cyst. The needle eas johanna penetrated the mass. On aspiration the mass fully collapsed with no remnant. The patient tolerated the procedure well without complications. Post-procedure care and precaution in structions were given to the patient. IMPRESSION: 1. Right breast aspiration was performed. The superficial 6 o'clock periareolar right br east mass fully collapsed indicating cyst etiology. No core biopsy was performed. 2. The aspirated fluid was sent for cytology assessment to assure no suspicious characteristics.
== END ==
LOC: DS 08:00
PROVIDERS: ATTEND Family Medicine
DX: R92.8 Other abnormal and inconclusive findings on diagnostic imaging of breast (principal); N63.14 Unspecified lump in the right breast, lower inner quadrant
CPT/HCPCS: 19000; 88108; 88305